=== PATIENT | female | born 1940 | race Caucasian/White ===

== ENCOUNTER 2022-01-26 10:45 | Inpatient (IN) | payer OTHER ==
[~2022-01-26] VITALS: Ht 152.4 cm; Wt 74.8 kg
[~2022-01-26 10:45] MED LIST: AMLO5TAB4 PO; AMOX-426 PO; APIX2.5T PO; ATOR10TA68 PO; CARV12.548 PO; DEXA6TAB5 PO; FURO-150 PO; HYDR20TA PO; OLME40TA12 PO; SYN50 PO
[2022-01-26 11:04] VITALS: BP_SYST 165
[2022-01-26] MEDS ORDERED: NACL 0.9% 1,000 ML IV ONE ×2 (11:30→12:45)
[2022-01-26 11:56] LABS: BASOPHILS % (AUTO) 0.3 % (0.0-2.0); EOSINOPHILS % (AUTO) 0.5 % (0.0-4.0); HEMATOCRIT 42.2 % (36-48); HEMOGLOBIN 14.4 g/dL (12.0-16.0); LYMPHOCYTES # (AUTO) 1.3 K/uL (1.0-5.5); LYMPHOCYTES % (AUTO) 15.9 % (20.5-51.5); MEAN CORPUSCULAR HEMOGLOBIN 33 pg (27-31); MEAN CORPUSCULAR HGB CONC 34 % (32-36); MEAN CORPUSCULAR VOLUME 98 fL (79.0-98.0); MONOCYTES # (AUTO) 0.6 K/uL (0.0-1.0); MONOCYTES % (AUTO) 6.8 % (1.7-9.3); NEUTROPHILS # (AUTO) 6.3 K/uL (1.8-7.7); NEUTROPHILS % (AUTO) 76.5 % (40.0-70.0); PLATELET COUNT (AUTO) 214 K/uL (130-430); RED BLOOD CELL COUNT(AUTO) 4.31 MIL/uL (4.2-6.2); RED CELL DISTRIBUTION WIDTH 14.6 % (9.0-15.0); WHITE BLOOD COUNT (AUTO) 8.2 K/uL (4.8-10.8)
[2022-01-26 12:07] LABS: ANION GAP 7 (5-15); CHLORIDE 100 mmol/L (98-107); CREATININE 0.88 mg/dL (0.55-1.30); GLUCOSE 106 mg/dL (70-99); POTASSIUM 3.9 mmol/L (3.5-5.1); SODIUM SERUM 137 mmol/L (136-145); UREA NITROGEN, BLOOD 23 mg/dL (8-21)
[2022-01-26 12:21] LABS: ALANINE AMINOTRANSFERASE 28 U/L (12-78); ALBUMIN 3.8 g/dL (3.4-4.8); ASPARTATE AMINOTRANSFERASE 22 U/L (10-37); TOTAL BILIRUBIN 0.7 mg/dL (0.0-1.0)
[2022-01-26 14:01] LABS: BILIRUBIN,URINE NEGATIVE (NEGATIVE); BLOOD, URINE 1+ (NEGATIVE); CLARITY/URINE CLEAR (CLEAR); COLOR,URINE YELLOW (YELLOW); GLUCOSE,URINE NEGATIVE (NEGATIVE); KETONES,URINE NEGATIVE (NEGATIVE); LEUKOCYTE ESTERASE ,URINE NEGATIVE (NEGATIVE); NITRITE, URINE NEGATIVE (NEGATIVE); PH,URINE 5.5 (5.0-8.0); PROTEIN URINE NEGATIVE (NEGATIVE); UROBILINOGEN,URINE 0.2 (0.2-1.0)
[2022-01-26] MEDS ORDERED: ONDANSETRON HCL 4 MG/2 ML VIAL IVP ONE (14:30)
[2022-01-26 14:36] LABS: BACTERIA,URINE RARE /HPF (None Seen); WBC,URINE 0-3 /HPF (0-3)
[2022-01-26] MEDS ORDERED: LOSA1TAB40 PO (15:23)
[2022-01-26] MEDS ORDERED: METF-379 PO (15:25)
[2022-01-26 16:37] VITALS: BP_SYST 119
[2022-01-26] MEDS: D5/0.45 NS 1,000 ML IV SCH (16:57)
[2022-01-26 20:30] VITALS: BP_SYST 137
[2022-01-26] MEDS ORDERED: LOSARTAN POTASSIUM 50 MG TABLET (COZAAR) PO SCH (21:00)
[2022-01-26] MEDS: APIXABAN 2.5 MG TABLET PO SCH (21:23)
[2022-01-26] MEDS: HYDROCORTISONE 10 MG TABLET (CORTEF) PO SCH (21:24)
[2022-01-26] MEDS: CARVEDILOL 12.5 MG TABLET (COREG) PO SCH (21:24)
[2022-01-26] MEDS: ATORVASTATIN 10 MG TABLET PO SCH (21:24)
[2022-01-27] VITALS (23 sets, daily range): BP systolic 78–146
[2022-01-27] MEDS ORDERED: NS 500 ML IV ONE (00:15)
[2022-01-27] MEDS ORDERED: NACL 0.9% 1,000 ML IV ONE ×2 (01:30→05:45)
[2022-01-27] MEDS ORDERED: NOREPINEPHRINE BITARTRATE 4 MG in NS 246 ML IV PRN (01:30)
[2022-01-27] MEDS: D5/0.45 NS 1,000 ML IV SCH ×3 (03:05→23:15)
[2022-01-27] MEDS ORDERED: cefTRIAXone 1 GM IVPB PREMIX 100 ML IV ONE (03:26)
[2022-01-27] MEDS ORDERED: NOREPINEPHRINE 4 MG/4 ML VIAL IV ONE (03:48)
[2022-01-27 04:04] LABS: GLUCOSE 114 mg/dL (70-99); POTASSIUM 3.6 mmol/L (3.5-5.1); UREA NITROGEN, BLOOD 23 mg/dL (8-21)
[2022-01-27 04:08] LABS: INR 1.4 (0.8-1.2); PROTHROMBIN TIME 14.4 SECS (9.5-12.5)
[2022-01-27 04:09] LABS: ALANINE AMINOTRANSFERASE 23 U/L (12-78); ALBUMIN 2.5 g/dL (3.4-4.8); ASPARTATE AMINOTRANSFERASE 26 U/L (10-37); TOTAL BILIRUBIN 0.6 mg/dL (0.0-1.0)
[2022-01-27 04:34] LABS: BASOPHILS % (AUTO) 0.2 % (0.0-2.0); EOSINOPHILS % (AUTO) 0.1 % (0.0-4.0); HEMATOCRIT 33.6 % (36-48); HEMOGLOBIN 11.4 g/dL (12.0-16.0); LYMPHOCYTES # (AUTO) 2.2 K/uL (1.0-5.5); LYMPHOCYTES % (AUTO) 25.1 % (20.5-51.5); MEAN CORPUSCULAR HEMOGLOBIN 33 pg (27-31); MEAN CORPUSCULAR HGB CONC 34 % (32-36); MEAN CORPUSCULAR VOLUME 97 fL (79.0-98.0); MONOCYTES # (AUTO) 0.8 K/uL (0.0-1.0); MONOCYTES % (AUTO) 8.8 % (1.7-9.3); NEUTROPHILS # (AUTO) 5.8 K/uL (1.8-7.7); NEUTROPHILS % (AUTO) 65.8 % (40.0-70.0); PLATELET COUNT (AUTO) 184 K/uL (130-430); RED BLOOD CELL COUNT(AUTO) 3.45 MIL/uL (4.2-6.2); RED CELL DISTRIBUTION WIDTH 14.8 % (9.0-15.0); WHITE BLOOD COUNT (AUTO) 8.8 K/uL (4.8-10.8)
[2022-01-27 04:35] LABS: ANION GAP 8 (5-15); CHLORIDE 105 mmol/L (98-107); CREATININE 1.25 mg/dL (0.55-1.30); SODIUM SERUM 137 mmol/L (136-145)
[2022-01-27 05:15] LABS: ALANINE AMINOTRANSFERASE 23 U/L (12-78); ALBUMIN 2.6 g/dL (3.4-4.8); ANION GAP 6 (5-15); ASPARTATE AMINOTRANSFERASE 27 U/L (10-37); CHLORIDE 105 mmol/L (98-107); CREATININE 1.14 mg/dL (0.55-1.30); GLUCOSE 142 mg/dL (70-99); POTASSIUM 3.5 mmol/L (3.5-5.1); SODIUM SERUM 135 mmol/L (136-145); TOTAL BILIRUBIN 0.7 mg/dL (0.0-1.0); UREA NITROGEN, BLOOD 22 mg/dL (8-21)
[2022-01-27 05:18] LABS: CALCIUM 6.4 mg/dL (8.4-11.0)
[2022-01-27] MEDS ORDERED: CALCIUM GLUCONATE 1 GM in NS 100 ML IV ONE (05:45)
[2022-01-27] MEDS ORDERED: ACETAMINOPHEN 325 MG TABLET PO ONE (05:45)
[2022-01-27] MEDS ORDERED: ACETAMINOPHEN 325 MG TABLET ONE (06:02)
[2022-01-27 06:41] LABS: CALCIUM 6.4 mg/dL (8.4-11.0)
[2022-01-27] MEDS ORDERED: NON-FORMULARY MEDICATION (Losartan/Hctz* (Losartan-Hctz 100-25 Mg Tab*) 1 EACH) PO SCH (09:00)
[2022-01-27] MEDS ORDERED: metFORMIN HCL 500 MG TABLET PO SCH (09:00)
[2022-01-27] MEDS: CARVEDILOL 12.5 MG TABLET (COREG) PO SCH (09:00)
[2022-01-27] MEDS ORDERED: FUROSEMIDE 20 MG TABLET PO SCH (09:00)
[2022-01-27] MEDS ORDERED: amLODIPine BESYLATE 5 MG TABLET PO SCH (09:00)
[2022-01-27] MEDS: APIXABAN 2.5 MG TABLET PO SCH ×2 (09:52→21:03)
[2022-01-27] MEDS: HYDROCORTISONE 10 MG TABLET (CORTEF) PO SCH (09:55)
[2022-01-27] MEDS: LEVOTHYROXINE SODIUM 0.05 MG TABLET PO SCH (09:57)
[2022-01-27] MEDS ORDERED: HYDROCHLOROTHIAZIDE 25 MG TABLET (HCTZ) PO ONE (10:45)
[2022-01-27] MEDS ORDERED: ONDANSETRON HCL 4 MG/2 ML VIAL IVP PRN (12:30)
[2022-01-27] MEDS ORDERED: NOREPINEPHRINE BITARTRATE 8 MG in NS 242 ML IV PRN (14:45)
[2022-01-27] MEDS: cefTRIAXone 1 GM in D5W 50 ML IV SCH (14:55)
[2022-01-27] MEDS: HYDROCORTISONE SOD SUCC 100 MG/2 ML VIAL IVP SCH ×2 (15:01→21:53)
[2022-01-27] MEDS: metroNIDAZOLE 500 mg/NS 100 ML IV SCH ×2 (15:30→21:03)
[2022-01-27] MEDS ORDERED: ZOLPIDEM TARTRATE 5 MG TABLET PO ONE (21:00)
[2022-01-27] MEDS: ATORVASTATIN 10 MG TABLET PO SCH (21:03)
[2022-01-28] VITALS (25 sets, daily range): BP systolic 14–179
[2022-01-28] MEDS: metroNIDAZOLE 500 mg/NS 100 ML IV SCH ×3 (05:23→21:35)
[2022-01-28] MEDS: LEVOTHYROXINE SODIUM 0.05 MG TABLET PO SCH (06:29)
[2022-01-28] MEDS: HYDROCORTISONE SOD SUCC 100 MG/2 ML VIAL IVP SCH ×3 (06:29→21:36)
[2022-01-28 06:52] LABS: BASOPHILS % (AUTO) 0.2 % (0.0-2.0); HEMATOCRIT 35.3 % (36-48); HEMOGLOBIN 11.9 g/dL (12.0-16.0); LYMPHOCYTES # (AUTO) 0.8 K/uL (1.0-5.5); LYMPHOCYTES % (AUTO) 9.8 % (20.5-51.5); MEAN CORPUSCULAR HEMOGLOBIN 33 pg (27-31); MEAN CORPUSCULAR HGB CONC 34 % (32-36); MEAN CORPUSCULAR VOLUME 98 fL (79.0-98.0); MONOCYTES # (AUTO) 0.2 K/uL (0.0-1.0); MONOCYTES % (AUTO) 2.5 % (1.7-9.3); NEUTROPHILS # (AUTO) 6.7 K/uL (1.8-7.7); NEUTROPHILS % (AUTO) 87.5 % (40.0-70.0); PLATELET COUNT (AUTO) 169 K/uL (130-430); RED CELL DISTRIBUTION WIDTH 14.5 % (9.0-15.0); WHITE BLOOD COUNT (AUTO) 7.7 K/uL (4.8-10.8)
[2022-01-28 08:44] LABS: ALANINE AMINOTRANSFERASE 29 U/L (12-78); ALBUMIN 2.4 g/dL (3.4-4.8); ANION GAP 9 (5-15); ASPARTATE AMINOTRANSFERASE 37 U/L (10-37); C-REACTIVE PROTEIN QUANT 16.7 mg/dL (0-0.5); CHLORIDE 108 mmol/L (98-107); CREATININE 0.67 mg/dL (0.55-1.30); GLUCOSE 200 mg/dL (70-99); PHOSPHORUS 1.5 mg/dL (2.7-4.5); SODIUM SERUM 138 mmol/L (136-145); TOTAL BILIRUBIN 0.4 mg/dL (0.0-1.0); UREA NITROGEN, BLOOD 8 mg/dL (8-21)
[2022-01-28 08:58] LABS: CALCIUM 6.6 mg/dL (8.4-11.0)
[2022-01-28] MEDS ORDERED: HYDROCHLOROTHIAZIDE 25 MG TABLET (HCTZ) PO SCH (09:00)
[2022-01-28 09:07] LABS: ERYTHROCYTE SEDIMENTATION RATE 13 MM/HR (0-20)
[2022-01-28] MEDS: D5/0.45 NS 1,000 ML IV SCH (10:18)
[2022-01-28] MEDS ORDERED: POTASSIUM CHLORIDE 20 MEQ TAB.PRT.SR PO ONE (10:30)
[2022-01-28] MEDS: APIXABAN 2.5 MG TABLET PO SCH ×2 (10:59→21:36)
[2022-01-28] MEDS: cefTRIAXone 1 GM in D5W 50 ML IV SCH (13:15)
[2022-01-28] MEDS ORDERED: D5NS 1,000 ML IV SCH (17:15)
[2022-01-28] MEDS ORDERED: ALBUMIN HUMAN 25% 100 ML IV SCH (17:15)
[2022-01-28] MEDS ORDERED: ZOLPIDEM TARTRATE 5 MG TABLET PO ONE (21:30)
[2022-01-28] MEDS ORDERED: ZOLPIDEM TARTRATE 5 MG TABLET ONE (21:35)
[2022-01-28] MEDS: ATORVASTATIN 10 MG TABLET PO SCH (21:36)
[2022-01-29] VITALS (13 sets, daily range): BP systolic 106–155
[2022-01-29] MEDS: metroNIDAZOLE 500 mg/NS 100 ML IV SCH ×3 (05:12→20:59)
[2022-01-29] MEDS: HYDROCORTISONE SOD SUCC 100 MG/2 ML VIAL IVP SCH ×3 (06:07→20:57)
[2022-01-29] MEDS: LEVOTHYROXINE SODIUM 0.05 MG TABLET PO SCH (06:07)
[2022-01-29 06:31] LABS: ALANINE AMINOTRANSFERASE 32 U/L (12-78); ALBUMIN 2.8 g/dL (3.4-4.8); ANION GAP 8 (5-15); ASPARTATE AMINOTRANSFERASE 36 U/L (10-37); CALCIUM 7.3 mg/dL (8.4-11.0); CHLORIDE 108 mmol/L (98-107); CREATININE 0.62 mg/dL (0.55-1.30); GLUCOSE 148 mg/dL (70-99); POTASSIUM 3.7 mmol/L (3.5-5.1); SODIUM SERUM 140 mmol/L (136-145); TOTAL BILIRUBIN 0.4 mg/dL (0.0-1.0); UREA NITROGEN, BLOOD 10 mg/dL (8-21)
[2022-01-29 07:10] LABS: BASOPHILS % (AUTO) 0.1 % (0.0-2.0); HEMATOCRIT 35.6 % (36-48); HEMOGLOBIN 11.8 g/dL (12.0-16.0); LYMPHOCYTES # (AUTO) 0.9 K/uL (1.0-5.5); LYMPHOCYTES % (AUTO) 5.9 % (20.5-51.5); MEAN CORPUSCULAR HEMOGLOBIN 32 pg (27-31); MEAN CORPUSCULAR HGB CONC 33 % (32-36); MEAN CORPUSCULAR VOLUME 97 fL (79.0-98.0); MONOCYTES # (AUTO) 0.5 K/uL (0.0-1.0); MONOCYTES % (AUTO) 3.1 % (1.7-9.3); NEUTROPHILS # (AUTO) 13.7 K/uL (1.8-7.7); NEUTROPHILS % (AUTO) 90.9 % (40.0-70.0); PLATELET COUNT (AUTO) 190 K/uL (130-430); RED BLOOD CELL COUNT(AUTO) 3.67 MIL/uL (4.2-6.2); RED CELL DISTRIBUTION WIDTH 14.5 % (9.0-15.0); WHITE BLOOD COUNT (AUTO) 15.1 K/uL (4.8-10.8)
[2022-01-29] MEDS: APIXABAN 2.5 MG TABLET PO SCH ×2 (08:54→20:58)
[2022-01-29] MEDS: cefTRIAXone 1 GM in D5W 50 ML IV SCH (14:15)
[2022-01-29] MEDS: ATORVASTATIN 10 MG TABLET PO SCH (20:58)
[2022-01-29] MEDS ORDERED: ZOLPIDEM TARTRATE 5 MG TABLET PO PRN (23:00)
[2022-01-30 00:49] VITALS: BP_SYST 135
[2022-01-30] MEDS: LEVOTHYROXINE SODIUM 0.05 MG TABLET PO SCH (05:59)
[2022-01-30] MEDS: HYDROCORTISONE SOD SUCC 100 MG/2 ML VIAL IVP SCH (05:59)
[2022-01-30 08:00] VITALS: BP_SYST 160
[2022-01-30] MEDS: metroNIDAZOLE 500 mg/NS 100 ML IV SCH (08:48)
[2022-01-30] MEDS: APIXABAN 2.5 MG TABLET PO SCH (08:49)
[2022-01-30] MEDS ORDERED: METR-154 PO (10:27)
[2022-01-30] MEDS ORDERED: CIPR500T5 PO (10:27)
[2022-01-30 11:12] VITALS: BP_SYST 136
[2022-01-30 12:21] LABS: BASOPHILS % (AUTO) 0.2 % (0.0-2.0); HEMATOCRIT 37.8 % (36-48); HEMOGLOBIN 12.4 g/dL (12.0-16.0); LYMPHOCYTES % (AUTO) 5.6 % (20.5-51.5); MEAN CORPUSCULAR HEMOGLOBIN 32 pg (27-31); MEAN CORPUSCULAR HGB CONC 33 % (32-36); MEAN CORPUSCULAR VOLUME 98 fL (79.0-98.0); MONOCYTES # (AUTO) 0.9 K/uL (0.0-1.0); MONOCYTES % (AUTO) 4.9 % (1.7-9.3); NEUTROPHILS # (AUTO) 16.6 K/uL (1.8-7.7); NEUTROPHILS % (AUTO) 89.3 % (40.0-70.0); PLATELET COUNT (AUTO) 192 K/uL (130-430); RED BLOOD CELL COUNT(AUTO) 3.87 MIL/uL (4.2-6.2); RED CELL DISTRIBUTION WIDTH 14.9 % (9.0-15.0); WHITE BLOOD COUNT (AUTO) 18.6 K/uL (4.8-10.8)
[2022-01-30 12:27] VITALS: BP_SYST 157
[2022-01-30] MEDS ORDERED: HYDROCORTISONE SOD SUCC 100 MG/2 ML VIAL IVP SCH (21:00)
== END 2022-01-30 12:30 | disposition home health service (06) | DRG 871 ==
LOC: SED 10:45 → SMU 15:16 → SIC 01-27 01:39 → SMU 01-29 12:58
PROVIDERS: ADMIT Internal Medicine Hospice and Palliative Medicine; ATTEND Internal Medicine Hospice and Palliative Medicine
PROC: 5A09457 Assistance with Respiratory Ventilation, 24-96 Consecutive Hours, Continuous Positive Airway Pressure (ICD-10-PCS; principal; 2022-01-28)
DX: A41.9 Sepsis, unspecified organism (principal); R65.21 Severe sepsis with septic shock; E27.40 Unspecified adrenocortical insufficiency; I48.20 Chronic atrial fibrillation, unspecified; E03.9 Hypothyroidism, unspecified; E11.65 Type 2 diabetes mellitus with hyperglycemia; K52.9 Noninfective gastroenteritis and colitis, unspecified; D64.9 Anemia, unspecified; K57.90 Diverticulosis of intestine, part unspecified, without perforation or abscess without bleeding; Z20.822 Contact with and (suspected) exposure to COVID-19; E86.0 Dehydration; I10 Essential (primary) hypertension; I48.91 Unspecified atrial fibrillation; Z79.01 Long term (current) use of anticoagulants; Z79.84 Long term (current) use of oral hypoglycemic drugs; Z90.49 Acquired absence of other specified parts of digestive tract; Z79.899 Other long term (current) drug therapy
CPT/HCPCS: 36415; 71045; 76376; 80053; 81000; 82962; 83605; 83735; 84100; 84436; 85025; 85610-TC; 85651-TC; 86140; 87040; 87045-TC; 87046; 87086; 87230-TC; 94660; 96361; 96374; 99285; J0610; J0696; J1720; J2405; J3490; J7050; J7060